=== PATIENT | female | born 1990 | race Hispanic/Latino ===

== ENCOUNTER 2019-07-13 18:02 | Emergency (ER) | payer OTHER ==
[~2019-07-13 18:02] MED LIST: ASPI-988 PO
== END 2019-07-13 18:45 | disposition home or self-care (01) ==
LOC: EDH 18:02
DX: J06.9 Acute upper respiratory infection, unspecified (principal); M94.0 Chondrocostal junction syndrome [Tietze]
CPT/HCPCS: 99281

== ENCOUNTER 2021-07-15 16:18 | Emergency (ER) | payer OTHER ==
[2021-07-15] MEDS ORDERED: KETOROLAC 30MG VIAL (30MG/ML) IVP ONE (17:00)
[2021-07-15] MEDS ORDERED: ONDANSETRON 4MG INJ IVP ONE (17:00)
[2021-07-15] MEDS ORDERED: MORPHINE 4 MG SYG IVP ONE (17:00)
[2021-07-15] MEDS ORDERED: CYCLOBENZAPRINE HCL 10 MG TABLET PO ONE (17:00)
[2021-07-15 17:37] VITALS: BP 113/61
== END 2021-07-15 19:10 | disposition home or self-care (01) ==
LOC: EDH 16:18
DX: S82.832A Other fracture of upper and lower end of left fibula, initial encounter for closed fracture (principal); Z79.82 Long term (current) use of aspirin; W18.39XA Other fall on same level, initial encounter; Y93.01 Activity, walking, marching and hiking; Y92.89 Other specified places as the place of occurrence of the external cause; Y99.8 Other external cause status
CPT/HCPCS: 29505; 73551; 73562; 73590; 96374; 96375; 99284; J1885; J2270; J2405